=== PATIENT | male | born 1990 | race African-American/Black ===

== ENCOUNTER 2021-06-28 04:02 | Inpatient (IN) | payer MEDICAID, OTHER ==
[~2021-06-28] VITALS: Ht 167.6 cm; Wt 81.6 kg
[2021-06-28 06:42] LABS: BASOPHILS % 0.6 % (0.0-2.0); EOSINOPHILS % 3.2 % (0.0-5.0); HEMATOCRIT. 30.5 % (42.0-52.0); HEMOGLOBIN. 9.8 g/dL (14.0-18.0); LYMPHOCYTES % 17.4 % (20.0-50.0); MEAN CORPUSCULAR VOLUME 74.9 fL (80.0-94.0); MONOCYTES % 7.1 % (2.0-8.0); NEUTROPHILS % 71.7 % (40.0-76.0); PLATELET 258 x1000/uL (130-400); RED BLOOD CELL COUNT 4.07 mill/uL (4.7-6.1); RED CELL DISTRIBUTION WIDTH 19.6 % (11.6-14.6)
[2021-06-28 06:47] LABS: CHLORIDE 104 mEq/L (98-107)
[2021-06-28] MEDS ORDERED: SODIUM CHLORIDE 0.9% 1,000 ML IV ONE ×2 (07:30→12:00)
[2021-06-28] MEDS ORDERED: CEFTRIAXONE 1 G PREMIX 50 ML IV ONE (07:30)
[2021-06-28] MEDS ORDERED: POTASSIUM CHLORIDE 20MEQ TABLET SR PO ONE (08:15)
[2021-06-28 08:38] LABS: CLARITY URINE CLEAR (CLEAR); COLOR URINE YELLOW (YELLOW); KETONES URINE NEGATIVE (NEGATIVE); LEUKOCYTE ESTERASE URINE NEGATIVE (NEGATIVE); NITRITE URINE NEGATIVE (NEGATIVE); OCCULT BLOOD URINE NEGATIVE (NEGATIVE); PH URINE 5.5 (4.5-8.0); PROTEIN URINE 1+ (NEGATIVE); SPECIFIC GRAVITY URINE 1.016 (1.005-1.030); UROBILINOGEN URINE 0.2 E.U./dL (0.2-1.0)
[2021-06-28 10:04] LABS: BG BASE EXCESS -3.3 mmol/L (-2.0-2.0); BG CARBOXYHEMOGLOBIN 0.4 % (0.5-1.5); BG DEOXYHEMOGLOBIN 7.7 % (0.0-5.0); BG FRACTION INSPIRED OXYGEN 36; BG HCO3 ACT 19.7 mmol/L (22.0-26.0); BG METHEMOGLOBIN 0.3 % (0.0-1.5); BG OXYGEN SATURATION 92.2 % (92.0-98.5); BG OXYHEMOGLOBIN 91.6 % (94.0-97.0); BG PH 7.451 (7.350-7.450); BG PO2 66.3 mmHg (75.0-100.0); BG SAMPLE SITE RIGHT RADIAL; BG TOTAL HEMOGLOBIN 10.3 g/dL (12.0-18.0); BG VENT MODE NASAL CANNULA
[2021-06-28] MEDS ORDERED: AMLODIPINE 5MG TABLET PO ONE (10:30)
[2021-06-28] MEDS ORDERED: ALBUTEROL (0.083%) 2.5MG/3ML NEB HHN ONE (12:00)
[2021-06-28] MEDS ORDERED: LORAZEPAM 0.5MG TABLET PO ONE (12:00)
[2021-06-28] MEDS ORDERED: HYDRALAZINE 20MG/ML VIAL IV NR (15:00)
[2021-06-28] MEDS ORDERED: LIDOCAINE HCL/PF 1% 2ML VIAL ONE (15:43)
[2021-06-28] MEDS ORDERED: ZOLPIDEM TARTRATE 5MG TABLET PO PRN (15:45)
[2021-06-28] MEDS ORDERED: ONDANSETRON HCL 4MG/2ML INJ IV PRN (15:45)
[2021-06-28] MEDS ORDERED: ACETAMINOPHEN 325MG TABLET PO PRN (15:45)
[2021-06-28] MEDS ORDERED: DIPHENHYDRAMINE 50MG/ML VIAL IV PRN (15:45)
[2021-06-28] MEDS ORDERED: LORAZEPAM 2MG/ML CPJ IV PRN ×2 (15:45→16:00)
[2021-06-28] MEDS ORDERED: CLONIDINE 0.2MG TABLET PO PRN (15:45)
[2021-06-28] MEDS ORDERED: LABETALOL 5MG/ML SYR 20 MG/4 ML SYRINGE IV NR (16:00)
[2021-06-28] MEDS ORDERED: HYDRALAZINE 20MG/ML VIAL IV PRN (16:00)
[2021-06-28 16:19] LABS: CANNABINOID URINE SCREEN PRESUMTIVE POSITIVE (NEGATIVE); METHADONE URINE SCREEN NEGATIVE (NEGATIVE); OPIATES URINE SCREEN NEGATIVE (NEGATIVE); PHENCYCLIDINE URINE SCREEN NEGATIVE (NEGATIVE)
[2021-06-28 16:20] LABS: *AMPHETAMINES SCREEN URINE NEGATIVE (NEGATIVE); *BARBITURATES SCREEN URINE NEGATIVE (NEGATIVE); *BENZODIAZEPINES SCREEN URINE NEGATIVE (NEGATIVE); *COCAINE SCREEN URINE NEGATIVE (NEGATIVE)
[2021-06-28 16:30] LABS: BG BASE EXCESS -4.5 mmol/L (-2.0-2.0); BG DEOXYHEMOGLOBIN 0.5 % (0.0-5.0); BG FRACTION INSPIRED OXYGEN 100; BG HCO3 ACT 17.5 mmol/L (22.0-26.0); BG METHEMOGLOBIN 0.2 % (0.0-1.5); BG OXYGEN SATURATION 99.5 % (92.0-98.5); BG OXYHEMOGLOBIN 99.3 % (94.0-97.0); BG PCO2 23.9 mmHg (35.0-45.0); BG PH 7.483 (7.350-7.450); BG PO2 293.3 mmHg (75.0-100.0); BG SAMPLE SITE RIGHT RADIAL; BG TOTAL HEMOGLOBIN 10.8 g/dL (12.0-18.0); BG VENT MODE MASK - NRB
[2021-06-28] MEDS ORDERED: LEVOFLOXACIN 500MG PREMIX 100 ML IV SCH (16:30)
[2021-06-28] MEDS: DEXT 5%/0.45% NACL 1000ML 1,000 ML IV SCH (16:40)
[2021-06-28 18:13] VITALS: BP 168/110
[2021-06-28] MEDS: OLANZAPINE 10MG TABLET PO SCH (18:54)
[2021-06-28] MEDS: AMLODIPINE 10MG TABLET PO SCH (18:54)
[2021-06-28] MEDS: HYDRALAZINE HCL 100MG TABLET PO SCH ×2 (18:54→21:51)
[2021-06-28 20:00] VITALS: BP 125/88
[2021-06-28] MEDS: OMEPRAZOLE 20MG CAPSULE EXTENDED RELEASE PO SCH (21:51)
[2021-06-29] VITALS: BP 133/84
[2021-06-29 04:00] VITALS: BP_SYST 151; BP_SYST 172; BP_DIAS 122; BP_DIAS 95
[2021-06-29] MEDS: HYDRALAZINE HCL 100MG TABLET PO SCH ×3 (05:47→21:47)
[2021-06-29] MEDS: OMEPRAZOLE 20MG CAPSULE EXTENDED RELEASE PO SCH ×2 (07:02→21:47)
[2021-06-29] MEDS: DEXT 5%/0.45% NACL 1000ML 1,000 ML IV SCH (07:03)
[2021-06-29 07:23] LABS: BASOPHILS % 0.5 % (0.0-2.0); EOSINOPHILS % 2.3 % (0.0-5.0); HEMATOCRIT. 28.2 % (42.0-52.0); LYMPHOCYTES % 11.4 % (20.0-50.0); MEAN CORPUSCULAR HEMOGLOBIN 23.7 pg (28.0-32.0); MEAN CORPUSCULAR VOLUME 74.3 fL (80.0-94.0); MEAN PLATELET VOLUME 8.2 fl (7.4-10.4); MONOCYTES % 5.9 % (2.0-8.0); NEUTROPHILS % 79.9 % (40.0-76.0); PLATELET 285 x1000/uL (130-400); RED CELL DISTRIBUTION WIDTH 19.3 % (11.6-14.6)
[2021-06-29 07:30] LABS: CHLORIDE 109 mEq/L (98-107)
[2021-06-29 07:37] LABS: PHOSPHORUS 3.6 mg/dL (2.5-4.9)
[2021-06-29 08:00] VITALS: BP 139/87
[2021-06-29] MEDS: AMLODIPINE 10MG TABLET PO SCH (08:46)
[2021-06-29] MEDS: OLANZAPINE 10MG TABLET PO SCH (08:46)
[2021-06-29] MEDS ORDERED: LIDOCAINE HCL/PF 1% 2ML VIAL ONE (09:00)
[2021-06-29] MEDS ORDERED: POTASSIUM CHLORIDE 20MEQ TABLET SR PO NR (11:15)
[2021-06-29 12:00] VITALS: BP 141/86
[2021-06-29 12:50] LABS: BG BASE EXCESS -1.8 mmol/L (-2.0-2.0); BG CARBOXYHEMOGLOBIN 0.3 % (0.5-1.5); BG DEOXYHEMOGLOBIN 3.1 % (0.0-5.0); BG FRACTION INSPIRED OXYGEN 28; BG HCO3 ACT 20.4 mmol/L (22.0-26.0); BG METHEMOGLOBIN 0.5 % (0.0-1.5); BG OXYGEN SATURATION 96.9 % (92.0-98.5); BG OXYHEMOGLOBIN 96.1 % (94.0-97.0); BG PCO2 26.1 mmHg (35.0-45.0); BG PH 7.511 (7.350-7.450); BG PO2 90.7 mmHg (75.0-100.0); BG SAMPLE SITE RIGHT RADIAL; BG TOTAL HEMOGLOBIN 9.3 g/dL (12.0-18.0); BG VENT MODE NASAL CANNULA
[2021-06-29] MEDS: ACETAMINOPHEN 325MG TABLET PO PRN (13:58)
[2021-06-29 16:00] VITALS: BP 132/72
[2021-06-29] MEDS ORDERED: LEVOFLOXACIN 250MG PREMIX 100 ML IV SCH (16:30)
[2021-06-29 20:00] VITALS: BP 158/104
[2021-06-29] MEDS: DILTIAZEM HCL 90MG TABLET PO SCH (21:48)
[2021-06-30] VITALS: BP 160/97
[2021-06-30 04:30] VITALS: BP 128/76
[2021-06-30 06:24] LABS: EOSINOPHILS % 6.7 % (0.0-5.0); HEMATOCRIT. 26.7 % (42.0-52.0); HEMOGLOBIN. 8.8 g/dL (14.0-18.0); LYMPHOCYTES % 21.6 % (20.0-50.0); MEAN CORPUSCULAR HEMOGLOBIN 24.5 pg (28.0-32.0); MEAN PLATELET VOLUME 8.3 fl (7.4-10.4); MONOCYTES % 8.3 % (2.0-8.0); NEUTROPHILS % 62.4 % (40.0-76.0); PLATELET 284 x1000/uL (130-400); RED CELL DISTRIBUTION WIDTH 19.9 % (11.6-14.6)
[2021-06-30] MEDS: OMEPRAZOLE 20MG CAPSULE EXTENDED RELEASE PO SCH ×2 (06:47→20:41)
[2021-06-30] MEDS: DILTIAZEM HCL 90MG TABLET PO SCH ×3 (06:48→21:18)
[2021-06-30] MEDS: HYDRALAZINE HCL 100MG TABLET PO SCH ×3 (06:49→21:17)
[2021-06-30 07:21] LABS: PHOSPHORUS 3.7 mg/dL (2.5-4.9)
[2021-06-30 08:00] VITALS: BP 151/96
[2021-06-30] MEDS: OLANZAPINE 10MG TABLET PO SCH (09:00)
[2021-06-30] MEDS ORDERED: LEVOFLOXACIN 750MG PREMIX 150 ML IV SCH (11:00)
[2021-06-30 12:00] VITALS: BP 151/94
[2021-06-30] MEDS ORDERED: POTASSIUM CHLORIDE 20MEQ TABLET SR PO NR (12:15)
[2021-06-30] MEDS ORDERED: IPRATROPIUM/ALBUTEROL 0.5-3(2.5)MG/3ML NEB HHN PRN (14:30)
[2021-06-30] MEDS: GUAIFENESIN 600MG ER TABLET PO SCH ×2 (14:53→20:41)
[2021-06-30 16:00] VITALS: BP 131/83
[2021-06-30 20:00] VITALS: BP 159/99
[2021-07-01] VITALS: BP 147/95
[2021-07-01] MEDS: IPRATROPIUM/ALBUTEROL 0.5-3(2.5)MG/3ML NEB HHN SCH ×3 (00:37→16:26)
[2021-07-01] MEDS: ACETAMINOPHEN 325MG TABLET PO PRN (00:44)
[2021-07-01 04:00] VITALS: BP 151/93
[2021-07-01] MEDS: OMEPRAZOLE 20MG CAPSULE EXTENDED RELEASE PO SCH (06:13)
[2021-07-01] MEDS: DILTIAZEM HCL 90MG TABLET PO SCH ×2 (06:14→13:01)
[2021-07-01] MEDS: HYDRALAZINE HCL 100MG TABLET PO SCH ×2 (06:14→13:00)
[2021-07-01] MEDS: OLANZAPINE 10MG TABLET PO SCH (08:31)
[2021-07-01] MEDS: GUAIFENESIN 600MG ER TABLET PO SCH (08:31)
[2021-07-01] MEDS ORDERED: ATENOLOL 50 MG TABLET PO SCH (11:30)
[2021-07-01 12:00] VITALS: BP 172/112
[2021-07-01 13:59] VITALS: BP 148/89
[2021-07-01 14:23] VITALS: BP 148/89
[2021-07-01 16:00] VITALS: BP 116/73
[2021-07-02] MEDS ORDERED: LEVOFLOXACIN 250MG TABLET PO NR (11:00)
== END 2021-07-01 16:28 | disposition home or self-care (01) | DRG 720 ==
LOC: ER 04:38 → 7WST 08:40 → ENRESERV 14:08 → CANRESERV 14:08 → ENRESERV 14:48 → 8WST 06-29 04:03
PROVIDERS: ADMIT Internal Medicine; ATTEND Internal Medicine
DX: A41.9 Sepsis, unspecified organism (principal); J96.01 Acute respiratory failure with hypoxia; N17.0 Acute kidney failure with tubular necrosis; J18.9 Pneumonia, unspecified organism; F12.90 Cannabis use, unspecified, uncomplicated; F41.1 Generalized anxiety disorder; E87.6 Hypokalemia; F99 Mental disorder, not otherwise specified; Z20.822 Contact with and (suspected) exposure to COVID-19; I12.9 Hypertensive chronic kidney disease with stage 1 through stage 4 chronic kidney disease, or unspecified chronic kidney disease; N18.9 Chronic kidney disease, unspecified; Z82.49 Family history of ischemic heart disease and other diseases of the circulatory system; Z90.5 Acquired absence of kidney; Z79.899 Other long term (current) drug therapy
CPT/HCPCS: 36415; 36600; 71045; 71250; 76770; 80048; 80053; 80305; 81003; 82375; 82805; 83735; 84100; 84145; 85025; 87070; 87426; 87449; 93005; 93970; 94640; 99291; J0360; J0696; J1956; J2060; J3490; J7030; U0003; U0005